=== PATIENT | male | born 1960 | race Caucasian/White ===

== ENCOUNTER → 2025-03-02 | Outpatient (CLI) | payer MEDICARE, OTHER, SELFPAY ==
--- NOTE | 2025-03-02 12:30 | FEM._PTH ---
PATIENT: [address] LOC: [facility]#:[id number] AGE/SX: 64/M ROOM: RE03/02/[address]: Dr. Dago Gonzales MD : 1960 BED: DIS: 03/02/2025 SPEC #: [id number] RECD: 03/02/25 15:04 STATUS: [facility]RIST[facility] RELogan #: [id number] AMADO: 03/02/25 12:[address]: Dago Gonzales DEPT: SURGICAL PATHOLOGY RECD BY: Brandon Ragsdale ENTERED: 03/05/25 07:34 SP TYPE: FEM HEAD OTHR DR: NEHA Tissues: A - Hip, NOS Procedures: Decalcification bone/plaque Surgery Specimen Level III HEADER OPERATION: Left total hip arthroplasty PRE-OP DIAGNOSIS: Osteoarthritis of left hip TISSUE SUBMITTED: A- Left femoral head, bone and soft tissue MICROSCOPIC DIAGNOSIS A. Left femoral head, osteoarthritis, total hip arthroplasty: * Articular bone with reactive/degenerative changes and focal trilineage hematopoiesis. MICROSCOPIC DESCRIPTION Slides are reviewed. GROSS DESCRIPTION A. Received in formalin in a container labeled with the patient's name, date of , and left femoral head is a 5.5 x 5.3 x 4.4 cm femoral head with attached 1.5 cm in length by 3.5 similar in diameter femoral neck. The resection margin is smooth and firm. The cortical surface is pitted and granular with smooth eburnation. It is quadrisected to reveal unremarkable firm surfaces. Received in the same container are multiple bone and soft tissue curettings measuring 7 x 5.5 x 3 cm in aggregate. [employer] sections submitted in A1 following decalcification. [facility] 03-05-2025 CPT:[id number]
== END | disposition home or self-care (01) ==
LOC: LABSPEC 15:21
PROVIDERS: PCP Orthopaedic Surgery; Referring Provider Orthopaedic Surgery; Visit Provider Orthopaedic Surgery
DX: M16.12 Unilateral primary osteoarthritis, left hip (principal)
CPT/HCPCS: 88305; 88311